=== PATIENT | female | born 1985 | race Hispanic/Latino ===

== ENCOUNTER 2022-03-03 15:33 | Inpatient (IN) | payer MEDICAID, OTHER ==
[~2022-03-03] VITALS: Ht 172.7 cm; Wt 98.5 kg
[2022-03-03 15:56] LABS: APPEARANCE,URINE Cloudy (CLEAR); BILIRUBIN,URINE Negative (NEGATIVE); COLOR,URINE Dark Yellow (YELLOW); GLUCOSE, URINE (UA) Negative (NEGATIVE); KETONES,URINE Trace mg/dL (NEGATIVE); LEUKOCYTE ESTERASE ,URINE Large (NEGATIVE); NITRATE,URINE Positive (NEGATIVE); OCCULT BLOOD,URINE Trace (NEGATIVE); PROTEIN,URINE POS 1+ mg/dL (NEGATIVE)
[2022-03-03 16:14] LABS: BACTERIA,URINE Moderate /HPF (None Seen); WBC,URINE 26-50 /HPF (0-1)
[2022-03-03 16:17] LABS: MUCUS,URINE Few LPF (None Seen); SQUAMOUS EPITHELIAL CELL,UR Moderate /HPF (0-2)
[2022-03-03] MEDS ORDERED: ONDANSETRON 4MG INJ IVP ONE (18:00)
[2022-03-03] MEDS ORDERED: KETOROLAC 15MG/ML VIAL (15MG/ML) IV ONE (18:00)
[2022-03-03] MEDS ORDERED: CEFTRIAXONE 1G VIAL IVP ONE (18:00)
[2022-03-03] MEDS ORDERED: 0.9%NACL 1000ML 1,000 ML IV ONE (18:00)
[2022-03-03] MEDS ORDERED: MORPHINE 4 MG SYG IVP ONE ×2 (19:00→22:00)
[2022-03-03] MEDS ORDERED: CEPH500B PO (20:15)
[2022-03-03] MEDS ORDERED: ONDA4TAB10 PO (20:15)
[2022-03-03] MEDS ORDERED: NAPR-1023 PO (20:15)
[2022-03-03 21:03] LABS: BASOPHILS % (AUTO) 0.5 % (0.0-5.0); EOSINOPHILS % (AUTO) 1.6 % (0.0-8.0); HEMATOCRIT 40.1 % (36-48); LYMPHOCYTES % (AUTO) 8.4 % (21.0-51.0); MEAN CORPUSCULAR HEMOGLOBIN 27.5 pg (27.0-33.0); MEAN CORPUSCULAR HGB CONC 31.4 g/dL (32.0-36.0); MEAN CORPUSCULAR VOLUME 87.6 fL (79-99); MONOCYTES % (AUTO) 12.8 % (3.0-13.0); NEUTROPHILS % (AUTO) 76.3 % (40.0-77.0); PLATELET COUNT (AUTO) 219 K/uL (130-400); RED BLOOD CELL COUNT(AUTO) 4.58 MIL/uL (4.00-5.50); RED CELL DISTRIBUTION WIDTH 13.6 % (11.0-15.5); WHITE BLOOD COUNT (AUTO) 15.5 K/uL (4.8-10.8)
[2022-03-03 21:20] LABS: CREATININE 0.6 mg/dL (0.5-1.5); POTASSIUM 3.3 mmol/L (3.5-5.1)
[2022-03-03 21:23] LABS: TOTAL PROTEIN, SERUM 6.9 g/dL (6.0-8.3)
[2022-03-03] MEDS ORDERED: POTASSIUM BICARB/CIT AC 25 MEQ TABLET.EFF PO ONE (22:00)
[2022-03-03] MEDS ORDERED: MORPHINE 2 MG SYG IV PRN (22:00)
[2022-03-03] MEDS ORDERED: PHENAZOPYRIDINE HCL 200 MG TABLET PO ONE (22:00)
[2022-03-03] MEDS ORDERED: ONDANSETRON 4MG INJ IV PRN (22:00)
[2022-03-03] MEDS ORDERED: ACETAMINOPHEN 325 MG TAB PO PRN (22:00)
[2022-03-03] MEDS ORDERED: MORPHINE 4 MG SYG IV PRN (22:00)
[2022-03-03] MEDS ORDERED: POTASSIUM CHLORIDE 10% ELIXIR 20 MEQ/15 ML UDCUP PO PRN (22:30)
[2022-03-03] MEDS ORDERED: POTASSIUM CHLORIDE 20MEQ/100ML 100 ML IV PRN (22:30)
[2022-03-03] MEDS ORDERED: LIDOCAINE HCL-MPF 1% 2ML VIAL IV PRN (22:30)
[2022-03-03] MEDS ORDERED: KCL 20 MEQ ERTAB PO PRN (22:30)
[2022-03-03] MEDS: 0.9%NACL 1000ML 1,000 ML IV SCH (22:32)
[2022-03-03] MEDS: CEFTRIAXONE 1G VIAL IV SCH (22:32)
[2022-03-03] MEDS: PHENAZOPYRIDINE HCL 200 MG TABLET PO SCH (22:32)
[2022-03-03 23:08] VITALS: BP 131/76
[2022-03-04 04:00] VITALS: BP 125/75
[2022-03-04 05:17] LABS: BASOPHILS % (AUTO) 0.4 % (0.0-5.0); HEMATOCRIT 36.9 % (36-48); LYMPHOCYTES % (AUTO) 10.3 % (21.0-51.0); MEAN CORPUSCULAR HEMOGLOBIN 28.1 pg (27.0-33.0); MEAN CORPUSCULAR HGB CONC 33.3 g/dL (32.0-36.0); MEAN CORPUSCULAR VOLUME 84.4 fL (79-99); MONOCYTES % (AUTO) 13.8 % (3.0-13.0); PLATELET COUNT (AUTO) 238 K/uL (130-400); RED BLOOD CELL COUNT(AUTO) 4.37 MIL/uL (4.00-5.50); RED CELL DISTRIBUTION WIDTH 13.7 % (11.0-15.5); WHITE BLOOD COUNT (AUTO) 11.9 K/uL (4.8-10.8)
[2022-03-04 05:33] LABS: CREATININE 0.7 mg/dL (0.5-1.5); MAGNESIUM 1.7 mg/dL (1.80-2.40); PHOSPHORUS 2.9 mg/dL (2.5-4.9); POTASSIUM 3.1 mmol/L (3.5-5.1)
[2022-03-04] MEDS: PHENAZOPYRIDINE HCL 200 MG TABLET PO SCH ×3 (06:03→23:46)
[2022-03-04 07:10] VITALS: BP 122/69
[2022-03-04] MEDS: 0.9%NACL 1000ML 1,000 ML IV SCH ×2 (08:48→18:00)
[2022-03-04] MEDS: ENOXAPARIN SODIUM 40 MG/0.4 ML SYRINGE SQ SCH (08:49)
[2022-03-04] MEDS: FAMOTIDINE 20MG VIAL IV SCH ×2 (08:49→21:00)
[2022-03-04] MEDS ORDERED: POTASSIUM CHLORIDE 10% ELIXIR 20 MEQ/15 ML UDCUP PO ONE (09:30)
[2022-03-04] MEDS ORDERED: MAGNESIUM 2GM PREMIX 50ML 50 ML IV PRN (09:30)
[2022-03-04] MEDS ORDERED: ACETAMINOPHEN 500 MG TABLET PO PRN (09:30)
[2022-03-04 11:10] VITALS: BP 113/63
[2022-03-04 15:10] VITALS: BP 147/92
[2022-03-04] MEDS: HYDROCODONE/ACETAMINOPHEN 5/325 MG TAB PO PRN ×2 (16:20→23:46)
[2022-03-04] MEDS: CEFTRIAXONE 1G VIAL IV SCH (21:11)
[2022-03-04 21:51] VITALS: BP 100/66
[2022-03-04] MEDS ORDERED: PHENAZOPYRIDINE HCL 200 MG TABLET ONE (23:44)
[2022-03-04 23:56] VITALS: BP 130/77
[2022-03-05 04:26] VITALS: BP 106/58
[2022-03-05 05:27] LABS: HEMATOCRIT 38.4 % (36-48); MEAN CORPUSCULAR HEMOGLOBIN 27.3 pg (27.0-33.0); MEAN CORPUSCULAR HGB CONC 31.3 g/dL (32.0-36.0); MEAN CORPUSCULAR VOLUME 87.5 fL (79-99); RED BLOOD CELL COUNT(AUTO) 4.39 MIL/uL (4.00-5.50); RED CELL DISTRIBUTION WIDTH 13.4 % (11.0-15.5)
[2022-03-05] MEDS ORDERED: DiphenhydrAMINE HCL 50 MG/ML VIAL IV ONE (05:30)
[2022-03-05 05:44] LABS: CREATININE 0.6 mg/dL (0.5-1.5); MAGNESIUM 2.3 mg/dL (1.80-2.40); POTASSIUM 3.9 mmol/L (3.5-5.1)
[2022-03-05 07:10] VITALS: BP 127/74
[2022-03-05] MEDS: ENOXAPARIN SODIUM 40 MG/0.4 ML SYRINGE SQ SCH (09:00)
[2022-03-05] MEDS: FAMOTIDINE 20MG VIAL IV SCH (09:00)
[2022-03-05] MEDS ORDERED: LEVO750T46 PO (09:06)
[2022-03-05 11:10] VITALS: BP 106/67
[2022-03-05] MEDS ORDERED: LACTULOSE 20 GM/30 ML UDCUP PO ONE (11:55)
[2022-03-05] MEDS ORDERED: SENNOSIDES 8.6 MG TABLET PO SCH (11:55)
== END 2022-03-05 14:35 | disposition home or self-care (01) | DRG 690 ==
LOC: EDH 15:33 → EDHIP 15:34 → 3BH 23:08
PROVIDERS: ADMIT Internal Medicine; ATTEND Internal Medicine
DX: N12 Tubulo-interstitial nephritis, not specified as acute or chronic (principal); E83.42 Hypomagnesemia; E87.6 Hypokalemia; F17.210 Nicotine dependence, cigarettes, uncomplicated; Z20.822 Contact with and (suspected) exposure to COVID-19
CPT/HCPCS: 36415; 74176; 80048; 80053; 81001; 83605; 83735; 84100; 84145; 84702; 85025; 85027; 87040; 87077; 87088; 87186; 87635; 87804; C9803; G0378; J0696; J1200; J1650; J1885; J2270; J2405; J3475; J7030